=== PATIENT | male | born 1990 | race Caucasian/White ===

== ENCOUNTER 2021-02-13 00:23 | Emergency (ER) | payer OTHER ==
[2021-02-13 01:01] LABS: HEMOGLOBIN 16.6 gm/dl (14.0-17.5); RED BLOOD COUNT 5.63 M/UL (4.20-5.50); WHITE BLOOD COUNT 6.5 K/UL (4.5-11.0)
[2021-02-13 01:38] LABS: BUN/CREATININE RATIO 11 (0-10)
[2021-02-13] MEDS ORDERED: ASPIRIN CHEWABL81 MG PO (02:50)
[2021-02-13] MEDS ORDERED: K-DUR TAB 10 M10 MEQ PO (02:52)
== END 2021-02-13 05:10 | disposition home or self-care (01) ==
LOC: ER1 00:23
PROVIDERS: Physician Assistant
DX: U07.1 COVID-19 (principal); Z88.0 Allergy status to penicillin; F17.290 Nicotine dependence, other tobacco product, uncomplicated; E87.6 Hypokalemia
CPT/HCPCS: 71045; 80053; 82550; 82553; 83874; 83880; 84484; 85025; 93005; 96374; 99285; J1885; U0002